=== PATIENT | female | born 1995 | race Two or more races ===

== ENCOUNTER 2024-02-09 22:44 | Emergency (ER) | payer MEDICAID, SELFPAY ==
[2024-02-09 22:45] VITALS: BMI 23.8
[2024-02-09 22:51] VITALS: BP 136/86; PULSE 114; RESP 19; TEMP 36.6; O2SAT 99
[2024-02-09 22:55] VITALS: BP 109/94; PULSE 84; PULSE 94; RESP 18; O2SAT 100
--- NOTE | 2024-02-09 22:56 | EDRME_ITS ---
Rapid Medical Screening Exam [facility] Arrival date/time: 02/09/24 22:44 28F with no significant PMH presents to ED with 30 min of worsening generalized itching and SOB. Patient had americo from a place she's never eaten at before. Patient already took Benadryl and Claritin. Chief Complaint: Skin/Abscess/Foreign Body Vital signs: Vital Signs Temperature 97.9 F 02/09/24 22:51 Pulse Rate 114 H 02/09/24 22:51 Respiratory Rate 19 02/09/24 22:51 Blood Pressure 136/86 H 02/09/24 22:51 Pulse Oximetry (%) 99 02/09/24 22:51 Oxygen Delivery Method Room Air 02/09/24 22:51
[2024-02-09 23:04] VITALS: BP 118/82; PULSE 96
[2024-02-09] MEDS: FAMOTIDINE INJ 10 MG/ML VIAL 2 ML 20 MG IVP (23:04)
[2024-02-09] MEDS: EPINEPHrine INJ 1 MG/ML AMP 0.5 MG IM (23:04)
[2024-02-09] MEDS: SODIUM CHLORIDE 0.9% 1000 ML 1,000 ML 999 ML IV (23:08)
[2024-02-09] MEDS: MethylPREDNISolone SOD SUCC 62.5 MG/ML 2ML VIAL 125 MG IVP (23:12)
--- NOTE | 2024-02-09 23:18 | EDNOTE_ITS ---
ED Allergic Reaction RME/HPI General Chief complaint: Skin/Abscess/Foreign Body Stated complaint: ALLERGIC REACTION Time Seen by Provider: 02/09/24 23:05 Arrival date/time: 02/09/24 22:44 RME / HPI RME / HPI narrative: 02/09/24 22:44 A 28-year-old female patient with no past medical history presented to the ED half an hour after she started to have generalized skin rash. Patient reported that she started to feel generalized itching with mild chest tightness 30 minutes before presentation. She does not know what is the main reason for her reaction. She reported that she took ibuprofen 800 mg and ate americo from a new restaurant. Patient reported that she has been taking ibuprofen before however she did not have any allergic reaction from ibuprofen. She reported that she had an allergic reaction to an years ago and it was from Tylenol triple strength. Patient denied any new medications except the Benadryl which was taken after she started to have the reaction. Related Data Previous Rx's ?Medication ?Instructions ?Recorded epinephrine 0.1 mg/0.1 mL 0.1 ml subcut [id number] PRN 02/10/24 injection, auto-injector hypersensitivity reaction #2 ea prednisone 50 mg tablet 50 mg PO BID 2 days #4 tabs 02/10/24 Allergies Allergy/AdvReac Type Severity Reaction Status Date / Time acetaminophen Allergy Verified 02/09/24 22:47 [From Tylenol-Codeine] codeine Allergy Verified 02/09/24 22:47 [From Tylenol-Codeine] ED Exam Narrative Physical exam: GEN: AOx3, able to speak full sentences, anxious, plethoric HEENT: NC/AC, oral mucosa moist, neck supple CVS: RRR, good peripheral pulses, S1-S2 present, tachycardic, no murmurs appreciated RESP: Wheezing bilaterally, respiratory rate of 19, no signs of respiratory distress at this time. GI: soft,non distended, non tender, NBS MSK: able to move all 4 limbs, no lower extremity edema SKIN: Generalized urticarial rash, itchy, no angioedema. FILENET ADMIN: CN II-XII and Sensation grossly intact. Course Quality Measures none Orders Category Date Time Status [employer] Q4H START 00 Care 02/09/24 22:55 Active Insert IV NOW Care 02/09/24 22:55 Active CBC Stat Lab 02/09/24 23:05 Completed CMP [Comprehensive Metabolic Panel] Stat Lab 02/09/24 23:05 Completed HCG,Qualitative Serum Stat Lab 02/09/24 23:05 Completed Albuterol/Ipratr Rt Lisa [Duoneb Rt Lisa] Med 02/09/24 23:05 Discontinued 3 ml INH X1 ONE EPINEPHrine Inj [Adrenalin Inj] Med 02/09/24 22:55 Discontinued 0.5 mg IM X1 ONE Famotidine Inj [Pepcid Inj] Med 02/09/24 22:55 Discontinued 20 mg IVP X1 ONE MethylPREDNISolone.* [SoluMEDROL Inj] Med 02/09/24 22:55 Discontinued 125 mg IVP X1 ONE Sodium Chloride 0.9% 1000 ml [Ns] 1,000 ml Med 02/09/24 22:55 Discontinued IV 999 mls/hr Vital Signs Vital signs: Vital Signs Temperature 97.9 F 02/09/24 22:51 Pulse Rate 114 H 02/09/24 22:51 Respiratory Rate 19 02/09/24 22:51 Blood Pressure 136/86 H 02/09/24 22:51 Pulse Oximetry (%) 99 02/09/24 22:51 Oxygen Delivery Method Room Air 02/09/24 22:51 Allergic Reaction MDM Narrative MDM Narrative:: On evaluation we noticed that you had an anaphylactic reaction due to unknown cause for that reason we recommend the following ? Avoid eating in the restaurant that you had your dinner at. ? We prescribed you EpiPen use as prescribed and follow the instructions ? Use medication prednisone 50 mg twice daily by mouth for 2 days ? In case of recurrence of your symptoms please return to the ED as soon as possible Patient data External records reviewed:: [facility] previous records Clinical information provided by:: patient and spouse Social determinants that could affect healthcare access:: none Patient has the following chronic illnesses:: None How is presenting disease/condition affected by chronic disease/condition?: no chronic disease Evaluation data The following diagnostics were reviewed and interpreted by me:: lab results, radiology exam(s) and EKG tracing(s) Lab and/or radiology exams considered but not ordered:: None Interpretation Summary: Anaphylactic reaction Medications / Prescriptions Medications or Prescriptions considered but not ordered:: None Medication administrations:: Medication Administration History Discontinued Medications Albuterol/Ipratropium (Albuterol/Ipratropium (Duoneb) Rt Lisa 3 Ml Nebu) 3 ml INH X1 ONE Stop: 02/09/24 23:06 Last Admin: 02/09/24 23:37 Dose: 3 ml Documented By: AQUILINO Epinephrine HCl (Epinephrine Inj 1 Mg/Ml Amp) 0.5 mg IM X1 ONE Stop: 02/09/24 22:56 Last Admin: 02/09/24 23:04 Dose: 0.5 mg Documented By: TC Famotidine (Famotidine Inj 10 Mg/Ml Vial 2 Ml) 20 mg IVP X1 ONE Stop: 02/09/24 22:56 Last Admin: 02/09/24 23:04 Dose: 20 mg Documented By: TC Sodium Chloride (Ns) 1,000 mls @ 999 mls/hr IV .Q1H1M ONE Stop: 02/09/24 23:55 Last Admin: 02/09/24 23:08 Dose: 999 mls/hr Documented By: TC Methylprednisolone Sodium Succinate (Methylprednisolone Sod Succ 62.5 Mg/Ml 2ml Vial) 125 mg IVP X1 ONE Stop: 02/09/24 22:56 Last Admin: 02/09/24 23:12 Dose: 125 mg Documented By: TC As above after given Consultations Consultation(s) initiated? (list below): No Diagnosis Most likely diagnosis given after review of the tests above:: Anaphylactic reaction Admission Indicated Admission indicated?: not indicated Admission Request Was there a request for admission?: No Disposition Plan Disposition Plan: Discharge Discharge Attestation Discharge Attestation: The patient and all family members were given an opportunity to ask questions and understood the discharge instructions. Discharge instructions specifically effects, indications for sooner follow up or return to the emergency department, and the expected course of current diagnosis. Patient condition: Stable Discharge Plan Plan Patient Disposition: HOME (Self Care) Patient condition on transfer: Stable Prescriptions/Referrals Prescriptions/Med Rec: New epinephrine 0.1 mg/0.1 mL auto-injector 0.1 ml subcut [id number] PRN (Reason: hypersensitivity reaction) Qty: 2 0RF prednisone 50 mg tablet 50 mg PO BID 2 Days Qty: 4 0RF Referrals: Leo Malone MD [Primary Care Provider] - In 1 week Problem List Clinical Impression: Anaphylactic reaction Patient/Caregiver Discharge Instructions Print Language: Liberian Stand Alone Forms: Rosalinda Award Info., Patient Portal Info Letter
[2024-02-09 23:22] LABS: Basophils % (Auto) 0 % (0-2.5); Eosinophils # (Auto) 0.1 Thou/mm3 (0.0-0.5); Eosinophils % (Auto) 1 % (0-10); Hematocrit 40.3 % (36.0-46.0); Hemoglobin 13.9 g/dL (12.0-16.0); Immature Granulocytes % (Auto) 0 % (0-0); Immature Granulocytes Auto 0.04 Thou/mm3 (0.00-0.00); Lymphocytes # (Auto) 1.6 Thou/mm3 (1.0-4.8); Lymphocytes % (Auto) 17 % (10-50); Mean Corpuscular HGB Conc 34.5 g/dl (31.0-37.0); Mean Corpuscular Hemoglobin 30.1 pg (25.0-35.0); Mean Corpuscular Volume 87 fL (80-100); Monocytes # (Auto) 0.5 Thou/mm3 (0.0-0.8); Monocytes % (Auto) 5 % (0-12); Neutrophils # (Auto) 7.1 Thou/mm3 (1.8-7.7); Neutrophils % (Auto) 77 % (37-80); Nucleated Red Blood Cell % 0 /100 WBC (0); Platelet Count 245 Thou/mm3 (140-440); RDW Standard Deviation 40.5 fL (36.4-46.3); Red Blood Count 4.62 Miln/mm3 (4.00-5.20); White Blood Count 9.3 Thou/mm3 (3.6-11.0)
[2024-02-09 23:34] LABS: HCG,Qualitative Serum Negative
[2024-02-09] MEDS: ALBUTEROL/IPRATROPIUM (Duoneb) RT SOL 3 ML NEBU INH (23:37)
[2024-02-09 23:38] VITALS: PULSE 107; RESP 19; O2SAT 100
[2024-02-09 23:49] LABS: Alanine Aminotransferase 10 U/L (10-49); Albumin, Serum 4.6 gm/dL (3.5-5.0); Albumin/Globulin Ratio 1.6 (1.2-2.2); Alkaline Phosphatase 53 U/L (46-116); Anion Gap 7 (7-16); Aspartate Amino Transferase 12 U/L (0-34); BUN/Creatinine Ratio 19 Ratio (12-20); Bilirubin,Total 0.8 mg/dL (0.3-1.2); Blood Urea Nitrogen 15 mg/dL (9-23); Chloride 103 mMol/L (98-107); Creatinine (Component) 0.8 mg/dL (0.6-1.3); Estimated Creatinine Clearance 82.8 mL/min (>60); Globulin 2.8 gm/dL (2.3-3.5); Glucose 111 mg/dL (74-106); Osmolality,Calculated 275 (275-295); Potassium 3.6 mMol/L (3.4-5.1); Sodium 137 mMol/L (136-145); Total Protein 7.4 gm/dL (5.7-8.2); eGFR > 60 See Note
[2024-02-10 02:09] VITALS: BP 112/68; PULSE 77; RESP 17; TEMP 36.9; O2SAT 99
== END 2024-02-10 02:11 | disposition home or self-care (01) ==
PROVIDERS: Student in an Organized Health Care Education/Training Program; Emergency Provider Emergency Medicine; PCP Family Medicine
DX: T78.2XXA Anaphylactic shock, unspecified, initial encounter (principal)
CPT/HCPCS: 36415; 80053; 84703; 85025; 94640; 96361; 96372; 96374; 99284; A9270; J0171; J2919; J3490; J7030